=== PATIENT | female | born 1990 | race Caucasian/White ===

== ENCOUNTER 2017-09-23 10:34 | Emergency (ER) | payer OTHER ==
[2017-09-23 10:44] VITALS: BP 103/69; BMI 28.3
[2017-09-23] MEDS ORDERED: TORADOL 60 MG VIAL IM ONE (11:21)
[2017-09-23] MEDS ORDERED: TORADOL 60 MG VIAL ONE (11:22)
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
== END 2017-09-23 12:51 | disposition home or self-care (01) ==
LOC: ER 11:06
DX: Z04.3 Encounter for examination and observation following other accident (principal); S20.219A Contusion of unspecified front wall of thorax, initial encounter; M25.562 Pain in left knee; M79.632 Pain in left forearm; V49.9XXA Car occupant (driver) (passenger) injured in unspecified traffic accident, initial encounter
CPT/HCPCS: 71020; 73090; 73130; 73560; 73610; 96372; 99282; J1885

== ENCOUNTER 2017-09-26 08:53 | Emergency (ER) | payer SELFPAY ==
[2017-09-26 08:59] VITALS: BP 112/53; BMI 28.3
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
--- NOTE | 2017-09-26 09:50 | RAD ---
History: Arm pain. Exam: AP and lateral views of the left arm/humerus performed and demonstrate no evidence for acute fr acture, dislocation, or subluxation of the left humerus. Left shoulder joint is grossly intact, as is the left elbow joint. There is no destructive lytic bony lesions seen. The left AC joint is grossly intact as well. The visible lungs are clear, no displaced rib fracture is seen. Impression: Negative left humerus radiographic examination. Reported By:
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
== END 2017-09-26 10:30 | disposition home or self-care (01) ==
LOC: ER 09:07
DX: S46.912D Strain of unspecified muscle, fascia and tendon at shoulder and upper arm level, left arm, subsequent encounter (principal); S50.12XD Contusion of left forearm, subsequent encounter; S63.502D Unspecified sprain of left wrist, subsequent encounter; V89.2XXA Person injured in unspecified motor-vehicle accident, traffic, initial encounter
CPT/HCPCS: 73060; 73090; 99282